=== PATIENT | female | born 1995 | race African-American/Black ===

== ENCOUNTER 2017-06-14 12:06 | Emergency (ER) | payer OTHER ==
[~2017-06-14] VITALS: Ht 165.1 cm; Wt 93.0 kg
[~2017-06-14 12:06] MED LIST: METR500T8 PO; NITR100C62 PO; SULF1TAB24 PO
[2017-06-14 12:19] VITALS: BP 121/59
[2017-06-14 12:48] LABS: BILIRUBIN,URINE NEGATIVE (NEG); GLUCOSE,URINE NEGATIVE (NEG); NITRITE,URINE NEGATIVE (NEG); PH,URINE 6.5; PROTEIN,URINE 30 mg/dL (NEG-TRACE)
[2017-06-14 13:02] LABS: BACTERIA,URINE 0 /HPF (0-FEW); SQUAMOUS EPITHELIAL CELL,UR MANY /LPF; WBC,URINE >40 /HPF (0-4)
[2017-06-14] MEDS ORDERED: SULF1TAB23 PO (13:39)
[2017-06-14] MEDS ORDERED: METR500T PO (13:39)
--- NOTE | 2017-06-14 13:40 | PHYS DOC ---
Past Medical History Past Medical History: Depression Additional Past Medical Histor: PTSD Past Surgical History: Tubal ligation Alcohol Use: None Drug Use: None Adult General Chief Complaint Chief Complaint: PELVIC PAIN HPI HPI Patient is a 22 year old female with no significant medical history who presents today complaining of dysuria for 3 days and would like to be tested and treated for STDs. Review of Systems Review of Systems Constitutional: Denies fever or chills [] Eyes: Denies change in visual acuity, redness, or eye pain [] HENT: Denies nasal congestion or sore throat [] Respiratory: Denies cough or shortness of breath [] Cardiovascular: No additional information not addressed in HPI [] GI: Denies abdominal pain, nausea, vomiting, bloody stools or diarrhea [] : Dysuria for 3 days and STD concerns Musculoskeletal: Denies back pain or joint pain [] Integument: Denies rash or skin lesions [] Neurologic: Denies headache, focal weakness or sensory changes [] Endocrine: Denies polyuria or polydipsia [] Current Medications Current Medications Current Medications Medications (Trade) Dose Ordered Sig/Kaitlin Start Time Stop Time Status Last Admin Dose Admin Azithromycin (Zithromax) 1,000 mg 1X ONCE 06/14/17 13:45 06/14/17 13:46 06/14/17 13:27 1,000 MG Ceftriaxone Sodium (Rocephin Im) 250 mg 1X ONCE 06/14/17 13:45 06/14/17 13:46 06/14/17 13:30 250 MG Allergies Allergies Allergies Coded Allergies Type Severity Reaction Last Updated Verified No Known Drug Allergies 06/28/16 No Physical Exam Physical Exam Constitutional: Well developed, well nourished, no acute distress, non-toxic appearance. [] HENT: Normocephalic, atraumatic, bilateral external ears normal, oropharynx moist, no oral exudates, nose normal. [] Eyes: PERRLA, EOMI, conjunctiva normal, no discharge. [] Neck: Normal range of motion, no tenderness, supple, no stridor. [] Cardiovascular:Heart rate regular rhythm, no murmur [] Lungs & Thorax: Bilateral breath sounds clear to auscultation [] Abdomen: Bowel sounds normal, soft, no tenderness, no masses, no pulsatile masses. [] Pelvic exam External pelvic appears normal, cervix is closed, no CMT, no adnexal tenderness. Small amount of clear white discharge in the vaginal vault. Skin: Warm, dry, no erythema, no rash. [] Back: No tenderness, no CVA tenderness. [] Extremities: No tenderness, no cyanosis, no clubbing, ROM intact, no edema. [] Neurologic: Alert and oriented X 3, normal motor function, normal sensory function, no focal deficits noted. [] Psychologic: Affect normal, judgement normal, mood normal. [] Current Patient Data Vital Signs Vital Signs Date Time Temp Pulse Resp B/P (MAP) Pulse Ox O2 Delivery O2 Flow Rate FiO2 06/14/17 12:19 99.1 68 16 98 Room Air 99.1 Lab Values Laboratory Tests Test 06/14/17 11:49 06/14/17 12:35 POC Urine HCG, Qualitative Hcg negative (Negative) Urine Collection Type Unknown Urine Color Yellow Urine Clarity Cloudy Urine pH 6.5 Urine Specific [place] 1.025 Urine Protein 30 mg/dL (NEG-TRACE) Urine Glucose (UA) Negative mg/dL (NEG) Urine Ketones (Stick) Negative mg/dL (NEG) Urine Blood Small (NEG) Urine Nitrite Negative (NEG) Urine Bilirubin Negative (NEG) Urine Urobilinogen Dipstick 1.0 mg/dL (0.2 mg/dL) Urine Leukocyte Esterase Large (NEG) Urine RBC 3-5 /HPF (0-2) Urine WBC >40 /HPF (0-4) Urine Squamous Epithelial Cells Many /LPF Urine Bacteria 0 /HPF (0-FEW) Urine Mucus Marked /LPF Microbiology 06/14/17 Wet Prep - Final, Complete EKG EKG [] Radiology/Procedures Radiology/Procedures [] Course & Med Decision Making Course & Med Decision Making Pertinent Labs and Imaging studies reviewed. (See chart for details) This is a 22-year-old female patient presented to the ED with STD concern as well as UTI symptoms. Negative urine hCG, positive for bacterial vaginosis and urinary tract infection. Treated in the ED prophylaxis for STDs with Rocephin and azithromycin and discharged with Flagyl and Bactrim. Education provided on safe sex practices. Dragon Disclaimer Dragon Disclaimer This electronic medical record was generated, in whole or in part, using a voice recognition dictation system. Departure Departure Impression: Primary Impression: Bacterial vaginosis Additional Impressions: UTI (urinary tract infection) Concern about STD in female without diagnosis Disposition: 01 HOME, SELF-CARE Condition: STABLE Referrals: HAYDEN YADAV MD (PCP) Follow-up with the primary care doctor or the health department for further concerns Patient Instructions: Bacterial Vaginosis, [id number], Sexually Transmitted Diseases-SportsMed, Urinary Tract Infection Additional Instructions: You were seen for urinary tract infection and bacterial vaginosis and concern for STDs. We put you on antibiotics in the emergency room. Ensure you complete them. We treated you prophylaxis for STDs including Trichomonas, gonorrhea and chlamydia. Follow-up with your doctor in 1-2 weeks. Scripts Sulfamethoxazole/Trimethoprim (BACTRIM 400-80 MG TABLET) 1 Each Tablet 1 TAB PO BID, #14 TAB Prov: LUISA GOMEZ APRN 06/14/17 Metronidazole (FLAGYL) 500 Mg Tablet 1 TAB PO BID, #14 TAB Prov: LUISA GOMEZ APRN 06/14/17 Problem Qualifiers Additional Impressions: UTI (urinary tract infection) Urinary tract infection type: acute cystitis Hematuria presence: without hematuria Qualified Codes: N30.00 - Acute cystitis without hematuria LUISA GOMEZ APRN Jun 14, 2017 13:39
[2017-06-14] MEDS ORDERED: cefTRIAXone IM 250 MG VIAL IM ONE (13:45)
[2017-06-14] MEDS ORDERED: AZITHROMYCIN 250 MG TABLET. PO ONE (13:45)
== END 2017-06-14 13:40 | disposition home or self-care (01) ==
LOC: ER 12:06
DX: N39.0 Urinary tract infection, site not specified (principal); N76.0 Acute vaginitis; B96.89 Other specified bacterial agents as the cause of diseases classified elsewhere; Z20.2 Contact with and (suspected) exposure to infections with a predominantly sexual mode of transmission; F43.10 Post-traumatic stress disorder, unspecified; F32.9 Major depressive disorder, single episode, unspecified; Z98.51 Tubal ligation status
CPT/HCPCS: 81001; 81025; 87491; 87591; 96372; 99284; J0696; Q0111; Q0144

== ENCOUNTER 2019-07-18 05:05 | Emergency (ER) | payer MEDICAID, OTHER ==
[~2019-07-18] VITALS: Ht 167.6 cm; Wt 108.9 kg
[~2019-07-18 05:05] MED LIST changes: +METR-34 PO; +METR500T PO; -METR500T8 PO; +SULF1TAB23 PO
[2019-07-18 05:27] LABS: BASO % 1 % (0-3); EOS # 0.1 x10^3/uL (0.0-0.7); EOS % 1 % (0-3); HEMATOCRIT 35.4 % (36.0-47.0); LYMPH # 2.2 x10^3/uL (1.0-4.8); LYMPH % 27 % (24-48); MEAN CORPUSCULAR HEMOGLOBIN 30 pg (25-35); MEAN CORPUSCULAR HGB CONC 34 g/dL (31-37); MEAN CORPUSCULAR VOLUME 88 fL (79-100); MONO # 0.6 x10^3/uL (0.0-1.1); MONO % 8 % (0-9); NEUT # 5.4 x10^3/uL (1.8-7.7); NEUT % 64 % (31-73); PLATELET COUNT 201 x10^3/uL (140-400); RED BLOOD COUNT 4.04 x10^6/uL (3.50-5.40); RED CELL DISTRIBUTION WIDTH 13.6 % (11.5-14.5); WHITE BLOOD COUNT 8.3 x10^3/uL (4.0-11.0)
[2019-07-18 05:29] LABS: BILIRUBIN,URINE NEGATIVE (NEG); CLARITY,URINE CLEAR; COLOR,URINE YELLOW; NITRITE,URINE NEGATIVE (NEG); PH,URINE 5.5; PROTEIN,URINE NEGATIVE (NEG-TRACE); UROBILINOGEN,URINE 0.2 mg/dL (0.2 mg/dL)
[2019-07-18] MEDS ORDERED: IV NORMAL SALINE 1000ML BAG 1,000 ML IV ONE (05:30)
[2019-07-18 05:36] LABS: CALCIUM 8.8 mg/dL (8.5-10.1); CREATININE 0.8 mg/dL (0.6-1.0); GFR 104.9; POTASSIUM 3.7 mmol/L (3.5-5.1)
[2019-07-18 05:36] LABS: SQUAMOUS EPITHELIAL CELL,UR MOD /LPF
[2019-07-18 05:37] LABS: BACTERIA,URINE FEW /HPF (0-FEW)
[2019-07-18 05:42] LABS: ALBUMIN 3.7 g/dL (3.4-5.0); ALBUMIN/GLOBULIN RATIO 0.9 (1.0-1.7); MAGNESIUM 1.9 mg/dL (1.8-2.4); TOTAL BILIRUBIN 0.3 mg/dL (0.2-1.0); TOTAL PROTEIN 7.9 g/dL (6.4-8.2)
[2019-07-18] MEDS ORDERED: FAMOTIDINE 20 MG/2 ML VIAL IVP ONE (05:45)
[2019-07-18] MEDS ORDERED: KETOROLAC 15 MG/ML VIAL. IV ONE (05:45)
[2019-07-18] MEDS ORDERED: LIDO:MAALOX 1:1 20 ML SINGLE DOSE. PO PRN (05:45)
--- NOTE | 2019-07-18 05:54 | PHYS DOC ---
Past Medical History Additional Past Medical Histor: PTSD (RAUL FREEDMAN DO) Past Surgical History: Tubal ligation (RAUL FREEDMAN DO) Additional Information: Nonsmoker Alcohol Use: None Drug Use: None (RAUL FREEDMAN DO) Adult General Chief Complaint Chief Complaint: ABDOMINAL PAIN HPI HPI Patient is a 24 year old female with hx of recurrent UTI who presents with abdominal pain. Pt reports sharp, epigastric abdominal pain that radiates to the midback started at 16:30 yesterday (07/17/2019). She rates her pain as 8.5/10 (10=worst). Pt could not recall any specific trigger including food. She denies any trauma to the area. She also experiences some chill, right flank pain and UTI symptoms of increase urgency and frequency. Pt has tried Aleve and Ibuprofen with minimal relieve. (RAUL FREEDMAN DO) Review of Systems Review of Systems Constitutional: Denies fever or chills Eyes: Denies redness or eye pain HENT: Denies nasal congestion or sore throat Respiratory: Denies cough or shortness of breath Cardiovascular: Denies chest pain or palpitations GI: Positive abdominal pain. No nausea, or vomiting : Denies dysuria or hematuria Musculoskeletal: Positive back pain, and right flank pain. No Joint pain Integument: Denies rash or skin lesions. Neurologic: Denies headache, focal weakness or sensory changes Complete systems were reviewed and found to be within normal limits, except as documented in this note. (RAUL FREEDMAN DO) Current Medications Current Medications Current Medications Medications (Trade) Dose Ordered Sig/Kaitlin Start Time Stop Time Status Last Admin Dose Admin Ceftriaxone Sodium (Rocephin) 1 gm 1X ONCE 07/18/19 06:00 07/18/19 06:01 DC 07/18/19 05:55 1 GM Famotidine (Pepcid Vial) 20 mg 1X ONCE 07/18/19 05:45 07/18/19 05:46 DC 07/18/19 05:55 20 MG Ketorolac Tromethamine (Toradol 15mg Vial) 15 mg 1X ONCE 07/18/19 05:45 07/18/19 05:46 DC 07/18/19 05:55 15 MG Multi-Ingredient Mouthwash/Gargle (Gi Cocktail) 20 ml PRN QID PRN 07/18/19 05:45 07/18/19 05:55 20 ML Sodium Chloride 1,000 ml @ 1,000 mls/hr 1X ONCE 07/18/19 05:30 07/18/19 06:29 DC 07/18/19 05:33 1,000 MLS/HR (JOE PATTERSON MD) Allergies Allergies Allergies Coded Allergies Type Severity Reaction Last Updated Verified No Known Drug Allergies 06/28/16 No (JOE PATTERSON MD) Physical Exam Physical Exam Constitutional: Well developed, well nourished, no acute distress, non-toxic appearance HENT: Normocephalic, atraumatic, oropharynx moist Eyes: PERRL, EOMI, conjunctiva normal, no discharge Neck: Normal range of motion, no tenderness, supple Cardiovascular: Heart rate normal, regular rhythm Lungs & Thorax: Bilateral breath sounds clear to auscultation, no wheezing Abdomen: Soft, epigastric and below umbilicus tenderness Skin: Warm, dry, no erythema, no rash Back: Positive midback tenderness and right CVA tenderness Extremities: No tenderness, ROM intact, no edema Neurologic: Alert and oriented X 3, normal motor function, normal sensory function, no focal deficits noted Psychologic: Affect normal, judgement normal, mood normal (RAUL FREEDMAN DO) Current Patient Data Vital Signs Vital Signs Date Time Temp Pulse Resp B/P (MAP) Pulse Ox O2 Delivery O2 Flow Rate FiO2 07/18/19 05:15 98.0 81 16 120/60 (80) 99 Room Air 98.0 (JOE PATTERSON MD) Lab Values Laboratory Tests Test 07/18/19 05:05 07/18/19 05:15 07/18/19 05:20 Urine Collection Type Void Urine Color Yellow Urine Clarity Clear Urine pH 5.5 Urine Specific [place] >=1.030 Urine Protein Negative mg/dL (NEG-TRACE) Urine Glucose (UA) Negative mg/dL (NEG) Urine Ketones (Stick) Negative mg/dL (NEG) Urine Blood Moderate (NEG) Urine Nitrite Negative (NEG) Urine Bilirubin Negative (NEG) Urine Urobilinogen Dipstick 0.2 mg/dL (0.2 mg/dL) Urine Leukocyte Esterase Moderate (NEG) Urine RBC 3-5 /HPF (0-2) Urine WBC 11-20 /HPF (0-4) Urine Squamous Epithelial Cells Mod /LPF Urine Bacteria Few /HPF (0-FEW) Urine Mucus Mod /LPF White Blood Count 8.3 x10^3/uL (4.0-11.0) Red Blood Count 4.04 x10^6/uL (3.50-5.40) Hemoglobin 12.0 g/dL (12.0-15.5) Hematocrit 35.4 % (36.0-47.0) L Mean Corpuscular Volume 88 fL (79-100) Mean Corpuscular Hemoglobin 30 pg (25-35) Mean Corpuscular Hemoglobin Concent 34 g/dL (31-37) Red Cell Distribution Width 13.6 % (11.5-14.5) Platelet Count 201 x10^3/uL (140-400) Neutrophils (%) (Auto) 64 % (31-73) Lymphocytes (%) (Auto) 27 % (24-48) Monocytes (%) (Auto) 8 % (0-9) Eosinophils (%) (Auto) 1 % (0-3) Basophils (%) (Auto) 1 % (0-3) Neutrophils # (Auto) 5.4 x10^3/uL (1.8-7.7) Lymphocytes # (Auto) 2.2 x10^3/uL (1.0-4.8) Monocytes # (Auto) 0.6 x10^3/uL (0.0-1.1) Eosinophils # (Auto) 0.1 x10^3/uL (0.0-0.7) Basophils # (Auto) 0.0 x10^3/uL (0.0-0.2) Sodium Level 142 mmol/L (136-145) Potassium Level 3.7 mmol/L (3.5-5.1) Chloride Level 106 mmol/L (98-107) Carbon Dioxide Level 25 mmol/L (21-32) Anion Gap 11 (6-14) Blood Urea Nitrogen 13 mg/dL (7-20) Creatinine 0.8 mg/dL (0.6-1.0) Estimated GFR (Cockcroft-Gault) 104.9 BUN/Creatinine Ratio 16 (6-20) Glucose Level 111 mg/dL (70-99) H Calcium Level 8.8 mg/dL (8.5-10.1) Magnesium Level 1.9 mg/dL (1.8-2.4) Total Bilirubin 0.3 mg/dL (0.2-1.0) Aspartate Amino Transferase (AST) 14 U/L (15-37) L Alanine Aminotransferase (ALT) 23 U/L (14-59) Alkaline Phosphatase 87 U/L (46-116) Total Protein 7.9 g/dL (6.4-8.2) Albumin 3.7 g/dL (3.4-5.0) Albumin/Globulin Ratio 0.9 (1.0-1.7) L Lipase 75 U/L (73-393) POC Urine HCG, Qualitative Hcg negative (Negative) Laboratory Tests 07/18/19 05:15 Laboratory Tests 07/18/19 05:15 (JOE PATTERSON MD) EKG EKG [] (RAUL FREEDMAN DO) Radiology/Procedures Radiology/Procedures 24 yo female with hx of abdominal pain in the epigastric region and right flank pain. Labs were unremarkable except UA shows moderate hematuria with signs of infection. Some contaminate noted. Empiric antibiotic given due to concern for pyelonephritis. CT abdomen and pelvis was ordered to r/o kidney stones. Symptomatic treatments were provided for pain. Sign out to Dr. Patterson for further evaluation and final disposition. Discussed current findings and plan with patient, who acknowledges understanding and agreement.[] (RAUL FREEDMAN DO) Radiology/Procedures PROCEDURE: CT ABDOMEN PELVIS WO CONTRAST CT ABDOMEN PELVIS WO CONTRAST INDICATION: Right flank pain EXAM: Noncontrast CT of the abdomen and pelvis. Coronal and sagittal reformatted images were performed. PQRS compliance statement: One or more of the following individualized dose reduction techniques were utilized for this examination: 1. Automated exposure control 2. Adjustment of the mA and/or kV according to patient size 3. Use of iterative reconstruction technique COMPARISON: 04/23/2015 FINDINGS: No free air, free fluid, or fluid collection. Lower chest: The visualized lower lungs are aerated. No pleural or pericardial effusion. ABDOMEN: Liver: The noncontrast liver is homogeneous in attenuation. Gallbladder and biliary: Normal gallbladder without radiopaque stone. Normal caliber bile ducts. Spleen: Normal spleen. Pancreas: The noncontrast pancreas is homogeneous in attenuation without peripancreatic inflammatory changes. Adrenal glands: Normal adrenal glands. Kidneys and ureters: No opaque urinary calculi. Normal kidneys and ureters. GI tract: The stomach is decompressed and poorly evaluated. Normal caliber small bowel and colon. Normal appendix. Vascular structures: Normal caliber abdominal aorta. Lymph nodes: No lymphadenopathy in the abdomen or pelvis. PELVIS: Genitourinary system: Normal bladder. Normal uterus and ovaries. SKELETAL STRUCTURES AND SOFT TISSUES: No fracture or destructive lesion in the visualized skeleton. IMPRESSION: No acute abdominal process. No hydronephrosis or opaque ureteral calculi. (JOE PATTERSON MD) Course & Med Decision Making Course & Med Decision Making Pertinent Labs and Imaging studies reviewed. (See chart for details) [] (RAUL FREEDMAN DO) Course & Med Decision Making Patient care was assumed at 6 AM shift change. She presents complaining of right flank pain for the past 2-3 days. She has not had any vaginal bleeding or discharge or any pelvic pain. She admits to some dysuria and urinary frequency. She denies any fevers or chills. On repeat exam, she has some mild right-sided CVA tenderness, diffuse right-sided abdominal tenderness, without any suprapubic or pelvic tenderness. There is no rebound or guarding. Labs and CT imaging of been reviewed. The patient has been given a dose of Rocephin. I discussed test results, the need for close PCP follow-up (the patient will be given resources with local PCPs), and return precautions were discussed in detail. (JOE PATTERSON MD) Dragon Disclaimer Dragon Disclaimer This electronic medical record was generated, in whole or in part, using a voice recognition dictation system. (RAUL FREEDMAN DO) Departure Departure Impression: Primary Impression: Flank pain Additional Impression: UTI (urinary tract infection) Disposition: HOME, SELF-CARE Condition: STABLE Patient Instructions: Flank Pain, Urinary Tract Infection Scripts Sulfamethoxazole/Trimethoprim (BACTRIM DS TABLET) 1 Each Tablet 1 TAB PO BID, #14 TAB Prov: JOE PATTERSON MD 07/18/19 Problem Qualifiers RAUL FREEDMAN DO Jul 18, 2019 05:54 JOE PATTERSON MD Jul 18, 2019 07:01
[2019-07-18] MEDS ORDERED: cefTRIAXone IV Push 1 GM VIAL. IVP ONE (06:00)
--- NOTE | 2019-07-18 06:50 | RAD ---
CT ABDOMEN PELVIS WO CONTRAST INDICATION: Right flank pain EXAM: Noncontrast CT of the abdomen and pelvis. Coronal and sagittal reformatted images were performed. PQRS compliance statement: One or more of the following individualized dose reduction techniques were utilized for this examination: 1. Automated exposure control 2. Adjustment of the mA and/or kV according to patient size 3. Use of iterative reconstruction technique COMPARISON: 04/23/2015 FINDINGS: No free air, free fluid, or fluid collection. Lower chest: The visualized lower lungs are aerated. No pleural or pericardial effusion. ABDOMEN: Liver: The noncontrast liver is homogeneous in attenuation. Gallbladder and biliary: Normal gallbladder without radiopaque stone. Normal caliber bile ducts. Spleen: Normal spleen. Pancreas: The noncontrast pancreas is homogeneous in attenuation without peripancreatic inflammatory changes. Adrenal glands: Normal adrenal glands. Kidneys and ureters: No opaque urinary calculi. Normal kidneys and ureters. GI tract: The stomach is decompressed and poorly evaluated. Normal caliber small bowel and colon. Normal appendix. Vascular structures: Normal caliber abdominal aorta. Lymph nodes: No lymphadenopathy in the abdomen or pelvis. PELVIS: Genitourinary system: Normal bladder. Normal uterus and ovaries. SKELETAL STRUCTURES AND SOFT TISSUES: No fracture or destructive lesion in the visualized skeleton. IMPRESSION: No acute abdominal process. No hydronephrosis or opaque ureteral calculi. Electronically signed by: Bj Jimenez MD (07/18/2019 6:47 AM) [id number]
[2019-07-18] MEDS ORDERED: SULF1TAB24 PO (07:00)
[2019-07-18 07:10] VITALS: BP 119/56
== END 2019-07-18 07:19 | disposition home or self-care (01) ==
LOC: ER 05:05
DX: N39.0 Urinary tract infection, site not specified (principal); F43.10 Post-traumatic stress disorder, unspecified; Z98.51 Tubal ligation status
CPT/HCPCS: 36415; 74176; 80053; 81001; 81025; 83690; 83735; 85025; 87086; 96374; 96375; 99285; J0696; J1885; J3490; J7030

== ENCOUNTER 2019-09-04 01:06 | Emergency (ER) | payer MEDICAID ==
[~2019-09-04] VITALS: Ht 167.6 cm; Wt 97.5 kg
[2019-09-04 01:13] VITALS: BP 141/81
--- NOTE | 2019-09-04 01:57 | PHYS DOC ---
Past Medical History Past Medical History: No Pertinent History, Ovarian Cyst Additional Past Medical Histor: PTSD Past Surgical History: , Tubal ligation Additional Information: Nonsmoker Alcohol Use: None Drug Use: None Adult General Chief Complaint Chief Complaint: KNEE INJURY HPI HPI Ms. Doss is a 24yo AAF w/ PMH significant for and b/l tubal ligation presents w/ 1 week of constant b/l knee aching and throbbing knee pain. Denies inciting traumatic event. Intermittent right LE numbness and tingling radiating from knee to toes. Stands long hours at work which worsens pain. Ice and ibuprofen have not helped. Denies . Review of Systems Review of Systems Constitutional: Denies fever or chills Eyes: Denies redness or eye pain HENT: Denies nasal congestion or sore throat Respiratory: Denies cough or shortness of breath Cardiovascular: Denies chest pain or palpitations GI: Denies abdominal pain, nausea, or vomiting : Denies dysuria or hematuria Musculoskeletal: Reports b/l knee pain. Denies back pain or other joint pain Integument: Denies rash or skin lesions Neurologic: Reports right LE numbness/tingling. Denies headache or sensory changes Complete systems were reviewed and found to be within normal limits, except as documented in this note. Family History Family History Father: gout Grandmother: arthritis, unspecified Current Medications Current Medications Current Medications Medications (Trade) Dose Ordered Sig/Kaitlin Start Time Stop Time Status Last Admin Dose Admin Ibuprofen (Motrin) 600 mg 1X ONCE 09/04/19 02:00 09/04/19 02:01 DC 09/04/19 02:07 600 MG Allergies Allergies Allergies Coded Allergies Type Severity Reaction Last Updated Verified No Known Drug Allergies 06/28/16 No Physical Exam Physical Exam Constitutional: Well developed, well nourished, no acute distress, non-toxic appearance HENT: Normocephalic, atraumatic, oropharynx moist Eyes: Conjunctiva normal, no discharge Neck: Normal range of motion, no tenderness, supple Cardiovascular: Heart rate normal, regular rhythm Lungs & Thorax: Bilateral breath sounds clear to auscultation, no wheezing Skin: Warm, dry, no erythema, no rash Extremities: b/l knee tenderness, ROM intact, no edema Neurologic: Alert and oriented X 3, no focal deficits noted Psychologic: Affect normal, judgement normal, mood normal Current Patient Data Vital Signs Vital Signs Date Time Temp Pulse Resp B/P (MAP) Pulse Ox O2 Delivery O2 Flow Rate FiO2 09/04/19 01:13 98.7 88 20 141/81 (101) 97 Room Air 98.7 EKG EKG [] Radiology/Procedures Radiology/Procedures B/L KNEE X-RAY: IMPRESSION: preliminary read by ED physicians is unremarkable[] Course & Med Decision Making Course & Med Decision Making Pertinent Imaging studies reviewed. (See chart for details) Ms. Doss presented w/ b/l knee pain. B/L knee x-ray preliminary read by ED physician is unremarkable. CED bandage b/l knees. Patient stable for discharge with outpatient follow-up with PCP/orthopedics. Orthopedic referral provided. Discussed findings and plan with patient, who acknowledges understanding and agreement. [] Dragon Disclaimer Dragon Disclaimer This electronic medical record was generated, in whole or in part, using a voice recognition dictation system. Splinting Splinting : Location: bilateral knees Pre-Made Type: Ced bandages Pre-Proc Neuro Vasc Exam: normal Post-Proc Neuro Vasc Exam: normal, unchanged from pre-exam Departure Departure Impression: Primary Impression: Bilateral knee pain Disposition: HOME, SELF-CARE Condition: STABLE Referrals: NO PCP (PCP) SPRING JAVIER II, MD Patient Instructions: Knee Pain, [id number], Knee Wraps (Elastic Bandage) and RICE Scripts Naproxen (NAPROXEN) 375 Mg Tablet 375 MG PO TID PRN for PAIN, #30 TAB Prov: RAUL FREEDMAN DO 09/04/19 Problem Qualifiers Primary Impression: Bilateral knee pain Chronicity: acute Qualified Codes: M25.561 - Pain in right knee; M25.562 - Pain in left knee RAUL FREEDMAN DO Sep 04, 2019 01:57
[2019-09-04] MEDS ORDERED: IBUPROFEN 200 MG TABLET. PO ONE (02:00)
[2019-09-04] MEDS ORDERED: NAPR-695 PO (02:00)
--- NOTE | 2019-09-04 06:09 | RAD ---
Three views KNEE BILAT 3V Clinical History: Comparison: None. Findings: The visualized osseous structures appear normal. Impression: No acute findings. Electronically signed by: Wiley Corea III, MD (09/04/2019 6:06 AM) [id number]
== END 2019-09-04 02:12 | disposition home or self-care (01) ==
LOC: ER 01:06
DX: M25.561 Pain in right knee (principal); M25.562 Pain in left knee; Z98.890 Other specified postprocedural states; Z98.51 Tubal ligation status
CPT/HCPCS: 73562; 99284